=== PATIENT | female | born 1955 | race Caucasian/White ===

== ENCOUNTER 2018-03-22 09:41 | Emergency (ER) | payer SELFPAY ==
[~2018-03-22] VITALS: Ht 167.6 cm; Wt 70.3 kg
[2018-03-22] MEDS ORDERED: NEOMY/BACITR/POLYMYXIN OINT PACKET. TP ONE (10:00)
--- NOTE | 2018-03-22 10:36 | RAD ---
Three-view bilateral ankle dated 03/22/2018. No comparison available. CLINICAL INDICATION: Pain. FINDINGS: 3 views left ankle show normal bony alignment. No displaced fracture. No acute osseous or articular abnormality. Talar dome is intact. 3 views right ankle show normal bony alignment. No displaced fracture. No acute osseous or articular abnormality. Talar dome is intact. IMPRESSION: No acute findings. Electronically signed by: Josemanuel Mcconnell MD (03/22/2018 10:33 AM) [id number]
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
--- NOTE | 2018-03-22 10:39 | RAD ---
Three-view right shoulder dated 03/22/2018. No comparison available. Clinical data indication: Pain after injury. FINDINGS: 3 views right shoulder show normal bony alignment. No displaced fracture. No acute osseous or articular abnormality. Mild hypertrophic change of the AC joint. IMPRESSION: No acute radiographic abnormality. Electronically signed by: Josemanuel Mcconnell MD (03/22/2018 10:36 AM) [id number]
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
[2018-03-22] MEDS ORDERED: LIDOCAINE 1%/EPI 1:100,000 20 ML VIAL. ONE (11:20)
[2018-03-22] MEDS ORDERED: LIDOCAINE 1%/EPI 1:100,000 20 ML VIAL. INJ ONE (11:45)
[2018-03-22 12:21] VITALS: BP 133/79
== END 2018-03-22 12:21 | disposition home or self-care (01) ==
LOC: ER 09:41
DX: S01.01XA Laceration without foreign body of scalp, initial encounter (principal); S06.6X0A Traumatic subarachnoid hemorrhage without loss of consciousness, initial encounter; S40.211A Abrasion of right shoulder, initial encounter; S80.211A Abrasion, right knee, initial encounter; S60.511A Abrasion of right hand, initial encounter; V19.9XXA Pedal cyclist (driver) (passenger) injured in unspecified traffic accident, initial encounter; Y93.I9 Activity, other involving external motion; Y92.410 Unspecified street and highway as the place of occurrence of the external cause; Y99.8 Other external cause status
CPT/HCPCS: 12001; 70450; 73030; 73564; 73610; 99284; J3490